=== PATIENT | female | born 1950 | race Caucasian/White ===

== ENCOUNTER 2021-12-16 10:31 | Outpatient (CLI) | payer MEDICARE, SELFPAY ==
--- NOTE | ~2021-12-16 | CT_ITS ---
EXAMINATION: CT abdomen pelvis wo/w con DATE: 12/16/2021 11:26 INDICATION: Gross hematuria TECHNIQUE: Computed tomography (CT) of the abdomen and pelvis was performed without intravenous contr ast. CT of the abdomen and pelvis was then performed with a total of 130 mL Omnipaque 350 intravenous contrast using a double-bolus technique for simultaneous opacification of the renal parenchyma and r enal collecting system. The dose-length product (DLP) was 2355.00 mGy-cm. Automated exposure control and iterative reconstruction technique were employed. COMPARISON: None FINDINGS: Minimal dependent atelectasis is present in the lung bases. The heart size is normal. There is a 1.3 cm cyst of the liver. There is a 3 mm cyst of the spleen. The pancreas, gallbladder, and le ft adrenal gland are normal. Punctate calcifications of the right adrenal gland are consistent with p rior infection or trauma. No stones are identified in the kidneys, ureters, or bladder. There is no h ydronephrosis or hydroureter. There is a 2.4 x 1.4 cm intraluminal defect in the urinary bladder ever ing from the inferior bladder wall. There are changes of hysterectomy, oophorectomy, and pelvic lymph node dissection. No pathologically enlarged abdominal or pelvic lymph nodes are identified. There is no free intraperitoneal gas or evidence of bowel obstruction. There is severe thoracic and lumbar sp ondylosis. IMPRESSION: 1. Intraluminal mass of the urinary bladder concerning for urothelial carcinoma. Direct visualization is recommended. Reviewed, dictated and finalized at location F. IMPRESSION: 1. Intraluminal mass of the urinary bladder concerning for urothelial carcinoma . Direct visualization is recommended.
--- NOTE | ~2021-12-16 | XR_ITS ---
EXAMINATION: XR abdomen/kub 1V INDICATION: Gross hematuria TECHNIQUE: Supine view of the abdomen is obtained. COMPARISON: None FINDINGS: No urolithiasis is identified. Phleboliths are noted in the pelvis. There are surgical clip s in the pelvis. The bowel gas pattern is normal. Changes of posterior fusion and laminectomy are not ed at L4-5. IMPRESSION: 1. No radiographic correlate for the patient's symptoms. Reviewed, dictated and finalized at location F.
[2021-12-16 11:08] LABS: Estimated Glomerular Filt Rate > 60
== END 2021-12-16 10:32 | disposition home or self-care (01) ==
PROVIDERS: PCP Family Medicine; Visit Provider Nurse Practitioner Family
DX: R31.0 Gross hematuria (principal)
CPT/HCPCS: 74018; 74178; Q9967

== ENCOUNTER 2022-01-05 02:22 | Day surgery (SDC) | payer MEDICARE, SELFPAY ==
--- NOTE | 2022-01-04 12:33 | PC.NURSE ---
Report to the Outpatient Waiting Room, entrance under the green pavilion located off [facility], at time ___914____ on date ___01/05/22____. Planned Procedure Time: _1115 . Time changes happen often and if your time is changed the preop area will call you the afternoon before. - You and your visitor will be asked to self-screen and do not enter if you have any COVID symptoms. - We encourage only one visitor and NO visitors under age 16 are allowed at this time. Your visitor will receive communication by the phone number that is given day of service. - The patient visitor is requested to social distance or may leave the building when not with patient due to restrictions. - A mask is required within the hospital. Patients may have clear liquids (water, carbonated beverages, clear teas, apple juice) until 3 hours prior to surgery with a maximum of 20 ounces. - No food from midnight until time of surgery - Infants may have breast milk until 4 hours before surgery, formula 6 hours prior to surgery. - Children will be allowed to drink immediately following surgery. If applicable, please bring a bottle or sippy cup to assist with drinking. Juice, water, soda, and popsicles are readily available. For infants on formula, please bring formula the day of surgery. Pacifiers are allowed. Take the following medications with a SIP of water the morning of surgery: __METOPROLOL,PAIN PILL IF NEEDED Medications to discontinue per physician _NONE Date to take last dose Please no make-up, nail bengali, hairspray, perfume, deodorant, or body powder the day of surgery. No jewelry (including any body piercings) or valuables the day of surgery, leave them at home. Please take a shower or bath the night before, or the morning of, surgery with an antibacterial soap. Wear comfortable, loose fitting clothing. Children are encouraged to wear pajamas. - Jewelry must be removed prior to entering the operating room. Rings and piercings that are not removed may be cut off. - The hospital will not accept responsibility for valuables. - Please leave all valuables, including medications, at home the day of surgery. If you are going home after surgery, a licensed hyster driver must drive you home. - NO public transportation without another adult. - We recommend that an adult stay with you for 24 hours following discharge. - We also recommend that you do not drive, make important decision, drink alcoholic beverages, or take any drugs that were not prescribed by your health care provider for at least 24 hours after your discharge time. For Pediatric surgeries, we recommend two adults accompany the child home. Follow any additional instructions given to you from your surgeon. If you or anyone in your household have experienced Covid symptoms in the past week, please notify your surgeon or the nurse liaison at the phone number below for possible testing. Telephone instructions given to _PATIENT and asked if any additional questions and then verbalized understanding. Patient advised to call surgeon office or pre surgery nurse liaison [phone] if any additional questions.
[2022-01-04 12:40] VITALS: BMI 35.5
[2022-01-05] VITALS (11 sets, daily range): BP systolic 114–185; BP diastolic 68–95; PULSE 72–90; RESP 10–20; TEMP 36.2–36.9; O2SAT 94–100
--- NOTE | 2022-01-05 06:09 | ECG_ITS ---
Measurements Intervals [place] Rate: 61 P: 12 [place]: 178 QRS: -28 QRSD: 109 T: 16 QT: 432 QTc: 437 Interpretive Statements SINUS RHYTHM BORDERLINE T WAVE ABNORMALITY- INFERIOR LEADS BASELINE ARTIFACT- I, II, III BORDERLINE ECG NO PREVIOUS ECG AVAILABLE FOR COMPARISON Electronically Signed On 01-05-2022 10:39:13 CDT by Diego Lovett D.O.
--- NOTE | 2022-01-05 07:24 | WPDHPUPDATE1 ---
History and Physical Update Update Date/Time: 01/05/22 07:24 History and Physical has been reviewed, including an updated exam of the patient. There are NO changes in the patient's condition. Risks, benefits, and alternatives have been discussed and questions answered. Patient agrees to proceed with procedure.
[2022-01-05] MEDS: LACTATED RINGERS 1,000 ML 30 ML IV CONT (10:00)
--- NOTE | 2022-01-05 10:55 | P.PNAN_ITS ---
Anes - Initial Pre Proc Eval Procedure: Operation Date: 01/05/22 11:15 Proposed Procedures p Flexible Cystoscopy - Champ Naranjo MD s Trans Urethral Resection Bladder Tumor with Gemcitabine Instillation - Champ Naranjo MD Date/Time: 01/05/22 10:55 Surgeon: Champ Naranjo MD Pre Op Diagnosis: Bladder Ca, Gross Hematuria Patient Data Age: 71 Gender: F Height: 1.68 m Weight: 94.1 kg Last Vital Signs Temp 36.9 C 01/05/22 10:15 Pulse 72 01/05/22 10:15 Resp 14 01/05/22 10:15 BP 185/93 H 01/05/22 10:15 Pulse Ox 100 01/05/22 10:15 O2 Del Method Room Air 01/05/22 10:15 Allergies Allergy/AdvReac Type Severity Reaction Status Date / Time Iodinated Contrast Media AdvReac Rash Verified 01/05/22 10:42 iodine AdvReac Rash Verified 01/05/22 10:42 Home Medications Medication Instructions Recorded Confirmed Type hydrocodone 5 mg-acetaminophen 325 1 tablet PO PRN PRN Pain 01/04/22 01/05/22 History mg tablet hyoscyamine sulfate 0.375 mg 0.75 mg PO BID 01/04/22 01/05/22 History tablet,extended release,12 hr metoprolol tartrate 50 mg tablet 75 mg PO BID 01/04/22 01/05/22 History omeprazole 40 mg capsule,delayed 40 mg PO DAILY 01/04/22 01/05/22 History release Patient hx anesthesia problems: none Family hx anesthesia problems: none Results Review: All pre-operative results and documents have been reviewed as part of the pre- operative evaluation. [facility] Past Medical History Medical History Bladder cancer GERD (gastroesophageal reflux disease) Hyperlipidemia Hypertension Social History Social History Smoking status: Never smoker Living arrangements: alone Spiritual care concerns: No Anes - Eval Final PreProcedure Day of Procedure 01/05/22 10:55 Patient weight: obese Heart: regular rate and rhythm Lungs: clear to auscultation Airway: Mallampati scale class II Neurological: alert and oriented Last oral intake: >/= 8 hours ASA classification: III Emergent: no Anesthetic plan: proceed Anesthesia type and monitoring: general LMA and standard monitoring Results Review: All pre-operative results and documents have been reviewed as part of the pre- operative evaluation. Informed Consent: The patient's anesthetic plan and its attendant risks and benefits were discussed with the patient/family/POA. Questions were solicited and answers provided to the satisfaction of the patient/family/POA.
[2022-01-05] MEDS: ceFAZolin 2 GM/D5W 50 ML 2 GM/50 ML BAG IVPB (11:06)
[2022-01-05] MEDS: LIDOCAINE HCL 2% GEL UROJET 10 ML PKG MUCOUS MEM (11:21)
--- NOTE | 2022-01-05 11:53 | W.PM.PROC2 ---
Procedure Note - Detailed Date of Procedure 01/05/22 Pre-op Diagnosis Bladder Ca, Gross Hematuria Post-op Diagnosis Same Procedure Performed TURBT (medium, 4cm) Surgeon Champ Naranjo MD Anesthesia General Description of Procedure The patient was brought to the operative suite where she is prepped and draped in a routine sterile fashion while in the dorsal lithotomy position. This is done after the uneventful administration of systemic sedation. 2% Xylocaine jelly is introduced intraurethrally and allowed to stand for an appropriate period of time. A 24F resectoscope sheath was placed in the bladder and the bladder is circumferentially inspected carefully. 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 This area is resected in its entirety with an attempt made to include detrusor muscle for pathological evaluation of invasion. The base and periphery of this resected side is cauterized with a loop electrode. The bladder is emptied and the resectoscope was removed. The patient is taken to the recovery room having tolerated this procedure well. Drains Yes Packing Yes Pathology Yes Complications No immediate complications Condition Stable Disposition PACU
--- NOTE | 2022-01-05 11:54 | W.PM.PROC2 ---
Procedure Note - Detailed Date of Procedure 01/05/22 Pre-op Diagnosis Bladder Ca, Gross Hematuria Post-op Diagnosis Same Procedure Performed Gemcitabine installation Surgeon Champ Naranjo MD Anesthesia None Description of Procedure With the patient in the supine position, a 16F Dixon catheter is placed using sterile technique. Using a protective facemask, gown and double layer of gloves Gemcitabine 2gm in 100cc saline is administered through the catheter/into the bladder. The catheter is then plugged. Patient was instructed to lie supine x20min, then to roll both the left and right x20 min. each. Total dwell time will be 60 min., after which the bladder will be drained and catheter removed. Drains Yes Packing Yes Pathology Yes Complications No immediate complications
[2022-01-05] MEDS: SODIUM CHLORIDE 0.9% IV 23.7 ML, GEMCITABINE HCL 1,000 MG BLADDER ×2 (11:59→12:00)
--- NOTE | 2022-01-05 12:21 | SUR.PHASEI ---
instillation of chemotheray into bladder ,pt turned to right and left sides and back each 20 mins,then draining chemo thru rivera, after chemo drained ,instilling 150ml ns and removal of rivera
== END 2022-01-05 14:27 | disposition home or self-care (01) ==
PROVIDERS: PCP Family Medicine; Visit Provider Urology
PROC: 0TBB8ZZ Excision of Bladder, Via Natural or Artificial Opening Endoscopic (ICD-10-PCS; CPT 52235; 2022-01-05 11:15)
DX: C67.1 Malignant neoplasm of dome of bladder (principal); I10 Essential (primary) hypertension; E78.5 Hyperlipidemia, unspecified; K21.9 Gastro-esophageal reflux disease without esophagitis; E66.9 Obesity, unspecified; Z68.33 Body mass index [BMI] 33.0-33.9, adult
CPT/HCPCS: 52235; 51720; 88305; 93005; A9270; J0690; J1100; J2405; J2704; J3010; J7120; J9201